=== PATIENT | male | born 1960 | race Caucasian/White ===

== ENCOUNTER 2021-09-14 06:24 | Inpatient (IN) | payer BC, MEDICARE, OTHER ==
[~2021-09-14] VITALS: Ht 188 cm; Wt 133.8 kg
[2021-09-14 07:43] LABS: Basophils # (auto) 0 10 ^3/uL (0-0.2); Basophils % (auto) 0.3 % (0.0-2.0); Eosinophils # (auto) 0 10 ^3/uL (0-0.8); Hematocrit 48.5 % (41.0-53.0); Hemoglobin 16.8 g/dL (13.5-17.5); Lymphocytes # (auto) 0.6 10 ^3/uL (0.4-5.4); Lymphocytes % (auto) 4.8 % (10.0-50.0); Mean Corpuscular Hemoglobin 30.5 pg (28.0-32.0); Mean Corpuscular Hgb Conc. 34.7 g/dL (32.0-36.0); Mean Corpuscular Volume 87.9 fL (80.0-100.0); Monocytes # (auto) 0.8 10 ^3/uL (0-1.3); Monocytes % (auto) 6.1 % (0.0-12.0); Neutrophils # (auto) 11.1 10 ^3/uL (1.6-8.6); Neutrophils % (auto) 88.8 % (37.0-80.0); Nucleated Red Blood Cells % 0.1 %; Red Blood Cells 5.52 10^6/uL (4.5-5.90); Red Cell Distribution Width 13.9 % (11.8-14.3); White Blood Cell 12.5 10^3/uL (4.4-10.8)
[2021-09-14 07:55] LABS: Albumin 3.7 g/dL (3.4-5.0); Calcium 9.2 mg/dL (8.5-10.1)
[2021-09-14 07:58] LABS: BUN/Creatinine Ratio 14.3; Bilirubin, Total 1.4 mg/dL (0.2-1.0); Total Protein 7.9 g/dL (6.4-8.2)
[2021-09-14] MEDS ORDERED: HYDROmorphone HCL 2 MG/ML VL IV ONE (08:30)
[2021-09-14] MEDS ORDERED: PROMETHAZINE HCL 25 MG/ML 1ML IV ONE (08:30)
[2021-09-14] MEDS ORDERED: IOHEXOL 300 MG/ML 100ML BOTTLE IJ ONE (08:31)
[2021-09-14] MEDS ORDERED: cefTRIAXone 1GM/50ML D5W 50 ML IV ONE (09:30)
[2021-09-14] MEDS ORDERED: LIDOCAINE HCL 2% TOP JELLY 5ML TOP ONE ×2 (09:30→14:45)
[2021-09-14] MEDS ORDERED: metroNIDAZOLE 500MG/100ML 100 ML IV ONE (09:30)
[2021-09-14 09:31] LABS: INR 1.01 (0.9-1.15); Partial Thromboplastin Time 27.4 sec (23.6-33.0)
[2021-09-14 10:19] LABS: Urine Bacteria NONE SEEN /hpf (None Seen); Urine Blood Negative /uL (Negative); Urine Mucus FEW (None Seen); Urine Specific Gravity 1.045 (1.001-1.035); Urine WBC 1 /hpf (0 - 3)
[2021-09-14] MEDS ORDERED: ONDANSETRON HCL 4 MG/2 ML VIAL IV PRN ×2 (12:30→16:00)
[2021-09-14] MEDS ORDERED: DOCUSATE SOD 100 MG CAP PO PRN (12:30)
[2021-09-14] MEDS ORDERED: SUCCINYLCHOLINE CHLORIDE 20 MG/ML 10ML VIAL IV ONE (13:09)
[2021-09-14] MEDS ORDERED: ONDANSETRON HCL 4 MG/2 ML VIAL ONE (13:11)
[2021-09-14] MEDS ORDERED: KETOROLAC TROMETH 60MG/2ML VIAL ONE (13:11)
[2021-09-14] MEDS ORDERED: PROPOFOL 10 MG/ML 20 ML IV ONE (13:11)
[2021-09-14] MEDS ORDERED: DexAMETHasone SOD PHOS 10MG/1ML VIAL INJ ONE (13:11)
[2021-09-14] MEDS ORDERED: LIDOCAINE 2% (LOCAL ANESTH.) PF 5ml SDV ONE (13:11)
[2021-09-14] MEDS ORDERED: fentaNYL CITRATE 100 MCG/2 ML VL ONE ×2 (13:12→14:24)
[2021-09-14] MEDS ORDERED: ROCURONIUM 10MG/ML 10ML VIAL IV ONE (13:12)
[2021-09-14] MEDS ORDERED: MIDAZOLAM HCL 2MG/2ML 2ml VIAL (1mg/ml) ONE (13:12)
[2021-09-14] MEDS ORDERED: SUGAMMADEX 200mg/2ml Vial (100MG/ML) IV ONE (13:17)
[2021-09-14] MEDS ORDERED: ceFAZolin 1GM VL ONE (14:40)
[2021-09-14] MEDS ORDERED: LABETALOL HCL 5 MG/ML 4ML SYRINGE IV PRN (16:00)
[2021-09-14] MEDS ORDERED: HYDROmorphone HCL 2 MG/ML VL IV PRN (16:00)
[2021-09-14] MEDS: HYDROmorphone HCL 2 MG/ML VL IV PRN ×2 (16:27→16:47)
[2021-09-14 17:34] VITALS: BP 116/64
[2021-09-14] MEDS: metroNIDAZOLE 500MG/100ML 100 ML IV SCH (17:47)
[2021-09-14] MEDS ORDERED: AMLO-489 PO (17:50)
[2021-09-14] MEDS ORDERED: LISI-716 PO (17:50)
[2021-09-14] MEDS ORDERED: IBU600T PO (17:51)
[2021-09-14] MEDS ORDERED: MORPHINE SULFATE INJECTION 2 MG/ML SYRG IV PRN (18:00)
[2021-09-14] MEDS: MORPHINE SULFATE 4 MG/ML SYR/VIAL IV PRN (18:39)
[2021-09-14 22:00] VITALS: BP 129/68
[2021-09-14] MEDS ORDERED: TEMAZEPAM 15 MG CAP PO PRN (22:00)
[2021-09-15] MEDS: metroNIDAZOLE 500MG/100ML 100 ML IV SCH ×3 (03:02→18:34)
[2021-09-15 05:00] VITALS: BP 137/82
[2021-09-15 05:18] LABS: Basophils # (auto) 0 10 ^3/uL (0-0.2); Basophils % (auto) 0.2 % (0.0-2.0); Eosinophils # (auto) 0 10 ^3/uL (0-0.8); Hematocrit 43.7 % (41.0-53.0); Lymphocytes # (auto) 1.3 10 ^3/uL (0.4-5.4); Lymphocytes % (auto) 8.3 % (10.0-50.0); Mean Corpuscular Hemoglobin 30.7 pg (28.0-32.0); Mean Corpuscular Hgb Conc. 34.3 g/dL (32.0-36.0); Mean Corpuscular Volume 89.6 fL (80.0-100.0); Monocytes # (auto) 1.4 10 ^3/uL (0-1.3); Monocytes % (auto) 9.3 % (0.0-12.0); Neutrophils # (auto) 12.4 10 ^3/uL (1.6-8.6); Neutrophils % (auto) 82.2 % (37.0-80.0); Red Blood Cells 4.88 10^6/uL (4.5-5.90); Red Cell Distribution Width 14.3 % (11.8-14.3); White Blood Cell 15.1 10^3/uL (4.4-10.8)
[2021-09-15 05:39] LABS: Albumin 3.1 g/dL (3.4-5.0); Calcium 8.3 mg/dL (8.5-10.1)
[2021-09-15 05:41] LABS: BUN/Creatinine Ratio 24.1
[2021-09-15 05:44] LABS: Bilirubin, Total 0.7 mg/dL (0.2-1.0); Total Protein 6.9 g/dL (6.4-8.2)
[2021-09-15] MEDS: MORPHINE SULFATE 4 MG/ML SYR/VIAL IV PRN ×2 (08:06→21:16)
[2021-09-15] MEDS: cefTRIAXone 1GM/50ML D5W 50 ML IV SCH (08:06)
[2021-09-15 08:31] VITALS: BP 166/108
[2021-09-15] MEDS: hydrALAZINE HCL 20 MG/ML VL IV SCH ×2 (12:11→18:34)
[2021-09-15 12:31] VITALS: BP 132/78
[2021-09-15] MEDS ORDERED: BENZOCAINE (DENTAL) 20 % SPRAY 60ML MT PRN (13:15)
[2021-09-15] MEDS ORDERED: ALBUTEROL SULF 2.5 MG/0.5ML(0.5%) NEB SOLN NEB PRN (13:15)
[2021-09-15 14:41] VITALS: BP 132/78
[2021-09-15] MEDS ORDERED: LORazepam 2MG/ML-1ML VIAL IV PRN (16:30)
[2021-09-15 16:31] VITALS: BP 133/75
[2021-09-15 22:00] VITALS: BP 154/88
[2021-09-16] MEDS: hydrALAZINE HCL 20 MG/ML VL IV SCH ×5 (00:32→23:47)
[2021-09-16] MEDS: metroNIDAZOLE 500MG/100ML 100 ML IV SCH ×3 (02:00→17:54)
[2021-09-16] MEDS: MORPHINE SULFATE 4 MG/ML SYR/VIAL IV PRN ×2 (03:42→11:48)
[2021-09-16 04:10] VITALS: BP 120/66
[2021-09-16 05:42] LABS: Basophils # (auto) 0 10 ^3/uL (0-0.2); Basophils % (auto) 0.3 % (0.0-2.0); Eosinophils # (auto) 0 10 ^3/uL (0-0.8); Hemoglobin 14.9 g/dL (13.5-17.5); Lymphocytes # (auto) 1.1 10 ^3/uL (0.4-5.4); Lymphocytes % (auto) 7.4 % (10.0-50.0); Mean Corpuscular Hemoglobin 30.9 pg (28.0-32.0); Mean Corpuscular Hgb Conc. 34.7 g/dL (32.0-36.0); Monocytes # (auto) 1.5 10 ^3/uL (0-1.3); Monocytes % (auto) 9.6 % (0.0-12.0); Neutrophils # (auto) 12.5 10 ^3/uL (1.6-8.6); Neutrophils % (auto) 82.7 % (37.0-80.0); Red Blood Cells 4.83 10^6/uL (4.5-5.90); White Blood Cell 15.1 10^3/uL (4.4-10.8)
[2021-09-16 06:00] LABS: Albumin 2.9 g/dL (3.4-5.0); Calcium 8.5 mg/dL (8.5-10.1); Magnesium 2.9 mg/dL (1.6-2.6); Potassium 3.8 mmol/L (3.5-5.1)
[2021-09-16 06:05] LABS: BUN/Creatinine Ratio 22.9; Bilirubin, Total 0.5 mg/dL (0.2-1.0); Phosphorus 1.9 mg/dL (2.5-4.90)
[2021-09-16] MEDS: SODIUM CHLORIDE 0.9% 1,000 ML IV SCH ×3 (07:00→22:50)
[2021-09-16 09:31] VITALS: BP 151/85
[2021-09-16] MEDS: cefTRIAXone 1GM/50ML D5W 50 ML IV SCH (09:52)
[2021-09-16 13:30] VITALS: BP 157/80
[2021-09-16] MEDS ORDERED: POTASSIUM PHOSPHATE 22 MEQ in SODIUM CHL 0.9% 100 ML IV ONE (15:00)
[2021-09-16 16:50] VITALS: BP 161/77
[2021-09-16] MEDS: HYDROmorphone HCL 2 MG/ML VL IV PRN (17:55)
[2021-09-16 21:30] VITALS: BP 152/95
[2021-09-16] MEDS: LORazepam 2MG/ML-1ML VIAL IV PRN (23:46)
[2021-09-17] MEDS: SODIUM CHLORIDE 0.9% 1,000 ML IV SCH ×3 (00:30→22:10)
[2021-09-17] MEDS: HYDROmorphone HCL 2 MG/ML VL IV PRN ×6 (00:55→22:10)
[2021-09-17] MEDS: metroNIDAZOLE 500MG/100ML 100 ML IV SCH ×3 (02:05→17:42)
[2021-09-17] MEDS: LABETALOL HCL 5 MG/ML 4ML SYRINGE IV PRN ×2 (04:33→09:46)
[2021-09-17 05:00] VITALS: BP 173/91
[2021-09-17] MEDS: hydrALAZINE HCL 20 MG/ML VL IV SCH ×3 (06:16→17:42)
[2021-09-17 08:56] VITALS: BP 163/90
[2021-09-17] MEDS: cefTRIAXone 1GM/50ML D5W 50 ML IV SCH (09:44)
[2021-09-17 12:56] VITALS: BP 136/66
[2021-09-17 16:30] VITALS: BP 141/72
[2021-09-17 22:00] VITALS: BP 167/84
[2021-09-17] MEDS: LORazepam 2MG/ML-1ML VIAL IV PRN (23:15)
[2021-09-18] MEDS: hydrALAZINE HCL 20 MG/ML VL IV SCH ×4 (00:04→18:35)
[2021-09-18] MEDS: metroNIDAZOLE 500MG/100ML 100 ML IV SCH ×3 (02:00→18:35)
[2021-09-18] MEDS: HYDROmorphone HCL 2 MG/ML VL IV PRN ×5 (02:10→23:02)
[2021-09-18] MEDS: LABETALOL HCL 5 MG/ML 4ML SYRINGE IV PRN ×2 (03:07→08:27)
[2021-09-18 05:00] VITALS: BP 159/78
[2021-09-18] MEDS: SODIUM CHLORIDE 0.9% 1,000 ML IV SCH ×2 (07:04→18:35)
[2021-09-18] MEDS: cefTRIAXone 1GM/50ML D5W 50 ML IV SCH (08:26)
[2021-09-18 09:00] VITALS: BP 154/84
[2021-09-18 13:00] VITALS: BP 153/73
[2021-09-18 17:00] VITALS: BP 131/57
[2021-09-18 22:00] VITALS: BP 160/86
[2021-09-19] MEDS: SODIUM CHLORIDE 0.9% 1,000 ML IV SCH ×2 (00:50→09:10)
[2021-09-19 01:00] VITALS: BP 155/74
[2021-09-19] MEDS: metroNIDAZOLE 500MG/100ML 100 ML IV SCH ×3 (02:16→18:05)
[2021-09-19 05:00] VITALS: BP 159/83
[2021-09-19] MEDS: hydrALAZINE HCL 20 MG/ML VL IV SCH ×4 (06:12→18:05)
[2021-09-19 09:00] VITALS: BP 152/54
[2021-09-19] MEDS: cefTRIAXone 1GM/50ML D5W 50 ML IV SCH (09:00)
[2021-09-19 13:00] VITALS: BP 155/72
[2021-09-19 17:00] VITALS: BP 137/64
[2021-09-19] MEDS: LORazepam 2MG/ML-1ML VIAL IV PRN (20:44)
[2021-09-19 21:30] VITALS: BP 136/48
[2021-09-20] MEDS: hydrALAZINE HCL 20 MG/ML VL IV SCH ×2 (01:19→07:03)
[2021-09-20] MEDS: metroNIDAZOLE 500MG/100ML 100 ML IV SCH ×2 (01:20→10:00)
[2021-09-20 05:00] VITALS: BP 152/66
[2021-09-20 05:58] LABS: Basophils # (auto) 0.1 10 ^3/uL (0-0.2); Basophils % (auto) 0.6 % (0.0-2.0); Eosinophils # (auto) 0.2 10 ^3/uL (0-0.8); Eosinophils % (auto) 1.7 % (0.0-7.0); Hematocrit 38.7 % (41.0-53.0); Hemoglobin 13.3 g/dL (13.5-17.5); Lymphocytes # (auto) 1.5 10 ^3/uL (0.4-5.4); Lymphocytes % (auto) 16.8 % (10.0-50.0); Mean Corpuscular Hemoglobin 30.6 pg (28.0-32.0); Mean Corpuscular Hgb Conc. 34.4 g/dL (32.0-36.0); Mean Corpuscular Volume 88.9 fL (80.0-100.0); Monocytes # (auto) 0.8 10 ^3/uL (0-1.3); Monocytes % (auto) 8.5 % (0.0-12.0); Neutrophils # (auto) 6.6 10 ^3/uL (1.6-8.6); Neutrophils % (auto) 72.4 % (37.0-80.0); Red Blood Cells 4.36 10^6/uL (4.5-5.90); Red Cell Distribution Width 14.3 % (11.8-14.3); White Blood Cell 9.1 10^3/uL (4.4-10.8)
[2021-09-20 06:15] LABS: Potassium 3.6 mmol/L (3.5-5.1)
[2021-09-20 06:19] LABS: Albumin 2.5 g/dL (3.4-5.0); BUN/Creatinine Ratio 23.7; Calcium 8.2 mg/dL (8.5-10.1); Magnesium 2.4 mg/dL (1.6-2.6)
[2021-09-20 06:21] LABS: Bilirubin, Total 0.4 mg/dL (0.2-1.0); Phosphorus 3.3 mg/dL (2.5-4.90); Total Protein 5.8 g/dL (6.4-8.2)
[2021-09-20 09:00] VITALS: BP 144/65
[2021-09-20] MEDS: cefTRIAXone 1GM/50ML D5W 50 ML IV SCH (09:00)
[2021-09-20] MEDS ORDERED: LEVO500T31 PO (11:14)
[2021-09-20 11:45] VITALS: BP 120/60
== END 2021-09-20 12:40 | disposition home or self-care (01) | DRG 853 ==
LOC: ER 06:24 → EDBD 06:24 → OVERFLOW 12:21 → EAST 17:31
PROVIDERS: ADMIT Registered Nurse; ATTEND Internal Medicine
PROC: 0WJG4ZZ Inspection of Peritoneal Cavity, Percutaneous Endoscopic Approach (ICD-10-PCS; 2021-09-14)
PROC: 0DNW0ZZ Release Peritoneum, Open Approach (ICD-10-PCS; 2021-09-14)
PROC: 0W9G00Z Drainage of Peritoneal Cavity with Drainage Device, Open Approach (ICD-10-PCS; 2021-09-14)
PROC: 0WQF0ZZ Repair Abdominal Wall, Open Approach (ICD-10-PCS; 2021-09-14)
PROC: 0DTJ0ZZ Resection of Appendix, Open Approach (ICD-10-PCS; principal; 2021-09-14 13:29)
DX: A41.9 Sepsis, unspecified organism (principal); K35.33 Acute appendicitis with perforation, localized peritonitis, and gangrene, with abscess; K43.6 Other and unspecified ventral hernia with obstruction, without gangrene; K57.90 Diverticulosis of intestine, part unspecified, without perforation or abscess without bleeding; E83.119 Hemochromatosis, unspecified; Z20.822 Contact with and (suspected) exposure to COVID-19; N18.2 Chronic kidney disease, stage 2 (mild); K44.9 Diaphragmatic hernia without obstruction or gangrene; K81.9 Cholecystitis, unspecified; K66.0 Peritoneal adhesions (postprocedural) (postinfection); K42.9 Umbilical hernia without obstruction or gangrene; E66.01 Morbid (severe) obesity due to excess calories; J44.9 Chronic obstructive pulmonary disease, unspecified; Z68.37 Body mass index [BMI] 37.0-37.9, adult; Z87.891 Personal history of nicotine dependence; Z90.49 Acquired absence of other specified parts of digestive tract
CPT/HCPCS: 36415; 71045; 74177; 80053; 81001; 83036; 83690; 83735; 84100; 84443; 85025; 85610; 85730; 86850; 86900; 86901; 87070; 87075; 87076; 87077; 87186; 87205; 93005; 93306; 96365; 96368; 96375; 97163; 99291; G0378; J0330; J0690; J0696; J1100; J1885; J2001; J2250; J2405; J2704; J3490